=== PATIENT | male | born 1950 | race Asian ===

== ENCOUNTER → 2020-05-25 13:44 | Outpatient (BNVA) | payer MEDICARE, SELFPAY | PROVIDERS: PCP Internal Medicine; Visit Provider Internal Medicine | DX: R06.02 Shortness of breath (principal); U07.1 COVID-19 | CPT/HCPCS: 93005; 99202 ==

== ENCOUNTER → 2020-06-01 07:46 | Outpatient (REF) | payer MEDICARE, SELFPAY ==
--- NOTE | ~2020-06-01 | NM_ITS ---
EXERCISE MYOCARDIAL PERFUSION STUDY INDICATION: Shortness of breath, history of COVID infection, assess for coronary disease and ischemia TECHNIQUE: The patient was brought in for an exercise perfusion study on 06/01/2020. Patient performed exercise as per Grant protocol and was injected 25 mCi of sestamibi once target heart rate was achieved. Images were obtained using the SPECT gamma camera interlaced with the gating device. Images were obtained in supine position. Resting perfusion study was performed on 06/02/2020. Patient was administered 25 mCi of sestamibi intravenously at rest. Images were then obtained in supine position. Total DLP 50mGy-cm. Images were processed with the software and compared side to side in short axis, horizontal long axis and vertical long axis views. FINDINGS: Raw images were reviewed. The stress perfusion study showed diminished tracer uptake along the inferior wall. With CT attenuation correction, this improves significantly suggestive of diaphragmatic artifact. The gated study shows normal LV systolic function with calculated LVEF of 66%. LV cavity is normal in size. The gated study shows normal wall thickening and contraction of segments. Resting study shows diminished tracer uptake along the inferior wall that improves with CT attenuation correction suggesting diaphragmatic artifact. Gating at rest reveals normal wall motion with ejection fraction at 59%. The findings are consistent with fixed inferior defect suspected to be from diaphragmatic artifact. No reversible defects. NJ/NJ cardiolite stress test IMPRESSION: 1. Myocardial perfusion imaging study shows no evidence of ischemia. Fixed defect along the inferior wall suspected to be from diaphragmatic attenuation artifact. 2. Gated LVEF is 66% during stress and 59% during rest. 3. Transient ischemic dilatation not present. EKG component of the test reported separately. Patient reached 78% of maximal age predicted heart rate. Target heart rate not reached.
--- NOTE | 2020-06-01 08:00 | CA_ITS ---
Acquisition Time: 2020-06-01 08:03:34 Total Exercise Time: 00:07:09 Test Indications: Dyspnea Medications: ATORVASTATIN Protocol: SCOTTY Max HR: 118 BPM 78% of Pred: 151 BPM Max BP: 172/070 mmHG Max Work Load: 7.4 METS Exercise stress nuclear using modified Scotty protocol, total of 7 min 9 sec, METS 7.40, TAPHR up to 78 %. Pt tolerated well, denies any anginal sx. EKG with no arrhythmias, no ischemic changes seen, however pt's HR up to 74 %, awaiting nuclear images . Normotensive response to exercise. Test reviewed with Dr. Woodson. Referred By: Suleiman Woodson Overread By: Kisha Blanco NP
== END ==
LOC: HO.CARD 07:46
PROVIDERS: PCP Internal Medicine; Visit Provider Internal Medicine
DX: R06.02 Shortness of breath (principal)
CPT/HCPCS: 78452; 93016; 93017; 93018; A9500

== ENCOUNTER → 2020-07-07 08:24 | Outpatient (REF) | payer MEDICARE, SELFPAY ==
--- NOTE | 2020-07-07 08:26 | CA_ITS ---
Transthoracic Echocardiogram Patient (Last, First, Middle): Dani Blankenship, Gender: Male Date of : 1950 Age: 70 Procedure Date: 07/07/2020 Procedure Type: Transthoracic Echocardiogram Location: OP Height: 172.72 cm Weight: 74.84 kg BSA: 1.88 m2 Heart Rate: bpm BP: 122 / 68 mmHg Medical Field Representative: Referring MD: Suleiman Woodson MD Outsole Flexer: Abelardo Dejesus MD Symptoms: R06.02 - Shortness of breath Study Quality: Good ECG Rhythm: Sinus Conclusions: - 1. Normal LV systolic function with impaired relaxation filling pattern 2. Normal cardiac valvular Doppler 3. Mildly dilated aortic root 4. Normal RV systolic pressure 5. No pericardial effusion Findings Left Ventricle Normal left ventricular size, thickness, and systolic function. The visually estimated ejection fraction is between 60-65%. Spectral Doppler is indicative of an impaired relaxation filling pattern. E/E prime ratio is between 8 and 15 consistent with indeterminate filling pressures. Right Ventricle Normal right ventricular cavity size and systolic function. Atria Both atria are normal in size. There is lipomatous hypertrophy of the interatrial septum. There is no evidence of interatrial shunt. Aortic Valve Normal aortic valve structure and function. There is no aortic valve stenosis. There is no aortic valve regurgitation. Mitral Valve Normal mitral valve structure and function. There is trace mitral valve regurgitation. There is no mitral valve stenosis. Pulmonic Valve The pulmonic valve was not well visualized. Tricuspid Valve Likely normal tricuspid valve structure and function. There is trace tricuspid valve regurgitation. The right ventricular systolic pressure is normal. The right ventricular systolic pressure is 22 mmHg. Normal right atrial pressure. There is no evidence of pulmonary hypertension. Great Vessels The pulmonary artery was not well visualized. There is mild dilatation of the sinuses of Valsalva. Venous The inferior vena cava is normal in size and collapses greater than 50% with inspiration. Pericardium/Pleural There is no evidence of pericardial effusion. Prior Study Comparison No prior study available for comparison. Measurements 2D Linear Measurements IVSd: 1.09 0.6-0.9/0.6-1.0 cm LVIDd: 4.36 3.9-5.3/4.2-5.9 cm LVIDd Index: 2.32 2.4-3.2/2.2-3.1 cm/m2 LVIDs: 2.63 2.0-3.6 cm LVPWd: 1.07 0.7-1.1 cm Ao Root: 4.00 2.1-3.5 cm LA Diam: 2.90 2.7-3.8/3.0-4.0 cm LAIDs Index: 1.54 1.5-2.3 cm/m2 LV Mass: 202.06 67-162/88-224 g LV Mass Index: 107.48 43-95/49-115 g/m2 LVOT Diam: 2.10 3.0+(-)1.3 cm Mitral Valve MV Pk E: 0.40 MV PK A: 0.74 MV Decel Time: 377.00 E/A: 0.50 E'Lateral: 4.68 E'Medial: 4.35 E/E' Med: 9.30 E/E' Lat: 8.60 PHT: 110.00 MVA PHT: 2.00 Decel Mobile: 1.07 Aortic Valve AoV Pk Sawyer: 1.43 AoV Mn Sawyer: 0.88 AoV VTI: 0.32 AoV Pk Grad: 8.00 Aov Mn Grad: 4.00 DEMARCUS Cont.VTI: 2.46 LVOT LVOT Pk Sawyer: 0.97 LVOT Mn Sawyer: 0.65 LVOT VTI: 0.23 LVOT Pk Grad: 4.00 LVOT Mn Grad: 2.00 LVOT Diam: 2.10 LVOT Area: 3.46 Diastolic Function MV Pk E: 0.40 MV Pk A: 0.74 E/A: 0.50 E'Medial: 4.35 E/E' Med: 9.30 E' Laterial: 4.68 E/E' Lat: 8.60 Tricuspid Valve TR Pk Sawyer: 2.18 TR Pk Grad: 19.00 RA Press: 3.00 RVSP: 22.00 Great Vessels Aorta Ao Root-2D: 4.00 2.0-3.7 cm Sinus of Valsalva: 4.00 2.0-3.5 cm Ao Asc: 3.50 2.1-3.4 cm Pulmonary Valve PV Pk Sawyer: 1.00 Peak PV Grad: 4.00 Updated in Other Vendor System with Status of Final Abelardo Dejesus MD electronically signed on 07/08/2020 5:01:02 PM with status of Final
== END ==
LOC: HO.CARD 08:24
PROVIDERS: Visit Provider Internal Medicine
DX: R06.02 Shortness of breath (principal)
CPT/HCPCS: 93306

== ENCOUNTER → 2020-07-13 12:21 | Outpatient (BNVA) | payer MEDICARE, SELFPAY | PROVIDERS: PCP Internal Medicine; Visit Provider Internal Medicine | DX: R06.02 Shortness of breath (principal); U07.1 COVID-19; F17.200 Nicotine dependence, unspecified, uncomplicated | CPT/HCPCS: 99212 ==

== ENCOUNTER 2020-08-19 10:43 | Outpatient (REF) | payer MEDICARE, SELFPAY ==
--- NOTE | ~2020-08-19 | XR_ITS ---
EXAMINATION: XR CHEST CLINICAL INFORMATION: Dyspnea. COMPARISON: 04/17/2019 TECHNIQUE: Two views of the chest were obtained. FINDINGS: No acute finding. No obvious failure or infiltrate. There is no effusion. Lung bynum are grossly clear and comparable to previous. The heart size is within normal limits. The hilar structures do not appear pathologically enlarged. There is no effusion. Degeneration in the thoracic spine. Calcification in the aortic arch. XR/XR chest 2V IMPRESSION: No acute process.
== END 2020-08-19 10:44 | disposition home or self-care (01) ==
LOC: HO.XRAY 10:43
PROVIDERS: PCP Internal Medicine; Visit Provider Internal Medicine
DX: R06.00 Dyspnea, unspecified (principal); U07.1 COVID-19; F17.200 Nicotine dependence, unspecified, uncomplicated; Z71.6 Tobacco abuse counseling
CPT/HCPCS: 71046; 99202

== ENCOUNTER 2020-09-02 09:54 | Outpatient (REF) | payer MEDICARE, SELFPAY ==
--- NOTE | 2020-09-02 17:34 | PFT_ITS ---
FLOWS: FEV1 of 93% of predicted at 2.82 L. FVC 90% of predicted at 3.73 L. FEV1 to FVC ratio of 0.76. No bronchodilator response. LUNG VOLUMES: Total lung capacity 110% of predicted at 7.32 L. Residual volume 131% of predicted at 3.07 L. Slow vital capacity 99% of predicted at 4.25 L. Expiratory reserve volume 16% of predicted at 0.19 L. Diffusion capacity is moderately decreased. IMPRESSION: No obstructive or restrictive ventilatory defect. No bronchodilator response. Increased residual volume suggests air trapping. Decreased diffusion capacity suggests emphysema. Jorge Luis Benson MD AP/MODL / [id number]
== END 2020-09-02 09:55 | disposition home or self-care (01) ==
LOC: HO.RESP 09:54
PROVIDERS: PCP Internal Medicine; Visit Provider Internal Medicine
DX: R06.00 Dyspnea, unspecified (principal); F17.200 Nicotine dependence, unspecified, uncomplicated; U07.1 COVID-19
CPT/HCPCS: 94060; 94727; 94729

== ENCOUNTER 2020-09-17 13:45 | Outpatient (REF) | payer MEDICARE, SELFPAY ==
--- NOTE | ~2020-09-17 | CT_ITS ---
EXAMINATION: CT CHEST SCREENING CLINICAL INFORMATION: Nicotine dependence, cigarettes. COMPARISON: Chest x-ray 08/19/2020 TECHNIQUE: Multidetector volumetric CT imaging of the chest is performed without contrast using low dose technique. Additional 2D coronal and sagittal reformatted images and axial 3D maximum intensity projection (MIP) images are generated on the CT workstation. This CT examination was performed using dose optimization techniques as appropriate, variously including the following: *Automated exposure control *Adjustment of mA and/or kV according to patient size (this includes techniques or standardized protocols for targeted exams where dose is matched to indication/reason for exam; i.e. extremities or head) *Use of iterative reconstruction technique DLP: 49 mGy-cm FINDINGS: LUNGS: The lungs are well-expanded and clear of acute pneumonic consolidation. There are a few pulmonary nodules. A 3 mm nodule right upper lobe axial image 114/6, 3 mm nodule right upper lobe medially axial image 151/6, 2 mm calcified nodule right upper lobe axial image 188/6, 2 mm nodular thickening left superior major fissure axial image 198/6, 3 mm nodule right upper lobe paravascular axial image 243/6, focal nodular thickening left major fissure axial image 29/4, 2 mm calcified nodule right lower lobe medially axial image 273/6. MEDIASTINUM: The thyroid lobes are symmetrical and normal. The central trachea and the bronchi are widely patent. Heart size and the great vessels are of normal caliber. No abnormally sized mediastinal or hilar lymph nodes are visualized. There is no pericardial effusion. PLEURA: There is no pleural effusion. No pleural mass or thickening. AXILLA: There are small shotty lymph nodes in the axilla. UPPER ABDOMEN: Visualized liver, spleen, pancreas and gallbladder appear unremarkable. No lytic or sclerotic process is seen. There is moderate spondylosis of the dorsal spine. OSSEOUS STRUCTURES: There is moderate spondylosis of the dorsal spine. No lytic process. CT/CT lung screening IMPRESSION: Multiple small pulmonary nodules with the largest calcified nodule measuring 3 mm. There is a nonvascular linear nodule measuring 3 mm in the right upper lobe. No abnormally sized mediastinal adenopathy. Minimal coronary artery calcification. ASSESSMENT: Lung-RADS category 2: Benign RECOMMENDATION: Low dose annual CT chest exam.
== END 2020-09-17 13:46 | disposition home or self-care (01) ==
LOC: HO.CT 13:45
PROVIDERS: Visit Provider Physician Assistant Medical
DX: Z12.2 Encounter for screening for malignant neoplasm of respiratory organs (principal); F17.210 Nicotine dependence, cigarettes, uncomplicated
CPT/HCPCS: 71271

== ENCOUNTER → 2020-09-22 10:34 | Outpatient (BNVA) | payer MEDICARE, SELFPAY | PROVIDERS: PCP Internal Medicine; Visit Provider Internal Medicine | DX: R06.00 Dyspnea, unspecified (principal); Z87.891 Personal history of nicotine dependence | CPT/HCPCS: 99212 ==

== ENCOUNTER → 2021-01-05 09:08 | Outpatient (BNVA) | payer MEDICARE, SELFPAY | PROVIDERS: PCP Internal Medicine; Visit Provider Internal Medicine | DX: R06.02 Shortness of breath (principal); U07.1 COVID-19; F17.200 Nicotine dependence, unspecified, uncomplicated | CPT/HCPCS: 99212 ==

== ENCOUNTER 2021-03-30 08:57 | Outpatient (REF) | payer MEDICARE, SELFPAY ==
[2021-03-30 10:12] LABS: MANUAL DIFF FLAG NO
[2021-03-30 10:24] LABS: Basophils Absolute Auto 0.1 X10*3/uL (0.0-0.2); Basophils Percent Auto 0.6 % (0-2); Eosinophils Absolute Auto 0.4 X10*3/uL (0.0-0.4); Eosinophils Percent Auto 4.2 % (0-4); Hematocrit 42.1 % (42.0-52.0); Hemoglobin 14.8 g/dl (14.0-18.0); Imm Gran Abs Auto 0.04 X10*3/uL (0.00-0.03); Imm Gran Pct Auto 0.5 % (0.0-0.4); Lymphocytes Absolute Auto 2.9 X10*3/uL (1.2-4.9); Lymphocytes Percent Auto 35.2 % (20-40); Mean Corpuscular HGB Conc 35.2 g/dl (31.0-36.0); Mean Corpuscular Hemoglobin 29.6 pg (27.0-33.0); Mean Corpuscular Volume 84.2 fL (80.0-98.0); Mean Platelet Volume 9.7 fL (9.4-12.4); Monocytes Absolute Auto 0.5 X10*3/uL (0.1-1.2); Monocytes Percent Auto 5.8 % (2-11); Neutrophils Absolute Auto 4.5 x10*3/uL (2.0-8.3); Neutrophils Percent Auto 53.7 % (45-73); Platelet Count 177 X10*3/uL (160-400); Red Cell Distribution Width 12.5 % (11.0-16.0); White Blood Count 8.3 X10*3/uL (4.8-10.8)
[2021-03-30 10:28] LABS: Prothrombin Time 11.3 SEC (9.9-13.0)
[2021-03-30 13:09] LABS: Alanine Aminotransferase 24 U/L (0-40); Albumin Level 4.2 g/dL (3.5-5.0); Alkaline Phosphatase 50 U/L (39-117); Anion Gap 11 (12-20); Aspartate Amino Transferase 16 U/L (5-37); Bilirubin Direct 0.2 mg/dL (0.0-0.5); Bilirubin Total 0.5 mg/dL (0.0-1.0); Carbon Dioxide 27 mmol/L (22-29); Chloride 106 mmol/L (96-108); Cholesterol 238 mg/dL; Estimated Glomerular Filt Rate > 60; Glucose Random 112 mg/dL (60-115); HDL Cholesterol 39 mg/dL; LDL Cholesterol Calculated 168 mg/dl; Sodium 140 mmol/L (135-145); Total Protein 6.8 g/dL (6.5-8.0); Triglycerides 158 mg/dL
[2021-03-30 16:05] LABS: Blood Urea Nitrogen 15 mg/dL (9-16); Calcium 9.6 mg/dL (8.4-10.2); Potassium 4.4 mmol/L (3.3-5.1)
== END 2021-03-30 08:58 | disposition home or self-care (01) ==
LOC: HO.LAB 08:57
PROVIDERS: PCP Internal Medicine; Referring Provider Internal Medicine; Visit Provider Internal Medicine
DX: I25.10 Atherosclerotic heart disease of native coronary artery without angina pectoris (principal); R06.00 Dyspnea, unspecified; E78.00 Pure hypercholesterolemia, unspecified; F17.210 Nicotine dependence, cigarettes, uncomplicated; Z86.16 Personal history of COVID-19; Z79.82 Long term (current) use of aspirin
CPT/HCPCS: 36415; 80048; 80061; 80076; 85025; 85610; 99212

== ENCOUNTER → 2021-04-20 13:49 | Outpatient (BNVA) | payer MEDICARE, SELFPAY | PROVIDERS: PCP Internal Medicine; Referring Provider Internal Medicine; Visit Provider Internal Medicine | DX: I25.10 Atherosclerotic heart disease of native coronary artery without angina pectoris (principal); E78.00 Pure hypercholesterolemia, unspecified; F17.200 Nicotine dependence, unspecified, uncomplicated | CPT/HCPCS: 99212 ==